=== PATIENT | female | born 1965 | race African-American/Black ===

== ENCOUNTER 2019-10-17 14:46 | Emergency (ER) | payer OTHER, SELFPAY ==
--- NOTE | ~2019-10-17 | XR_ITS ---
EXAMINATION: XR chest 2V DATE: 10/17/2019 17:10 INDICATION: Transient alteration of awareness, cough TECHNIQUE: PA and lateral views of the chest are obtained. COMPARISON: 08/20/2019 FINDINGS: The lung volumes are low. The lungs are free of acute opacities. There is no pleural effusi on or pneumothorax. Chronic elevation of the right hemidiaphragm is again noted. The cardiomediastina l silhouette is normal. There is mild thoracic spondylosis. IMPRESSION: 1. No acute cardiopulmonary abnormality. Reviewed, dictated and finalized at location A. LAYER HAND
[2019-10-17 14:47] VITALS: BP 136/72; PULSE 60; RESP 13; O2SAT 98
[2019-10-17 15:19] LABS: Glucose Point of Care 92 (65-105)
--- NOTE | 2019-10-17 15:41 | ED.GENADULT ---
HPI - General Adult General Chief complaint: Unspecified <Rafi Dutta DO - Last Filed: 10/17/19 15:51> Stated complaint: DIABETIC EMERGENCY <Rafi Dutta DO - Last Filed: 10/17/19 15:51> Time Seen by Provider: 10/17/19 14:57 <Rafi Dutta DO - Last Filed: 10/17/19 15:51> Source: RN notes reviewed <Rafi Dutta DO - Last Filed: 10/17/19 15:51> History of Present Illness HPI narrative: Patient presents emergency department from bus via EMS for hypoglycemia. Patient was found to be unresponsive on bus EMS was called and patient was found to have blood sugar 44. She is given glucose at that time blood sugar came up to 144 the patient became responsive. Patient states she takes insulin for diabetes took insulin this morning. States she did eat this morning. She denies any change in her insulin. She denies any recent illness. Denies any fevers or chills, chest pain shortness of breath abdominal pain nausea vomiting or any other symptoms at this time <Rafi Dutta DO - Last Filed: 10/17/19 15:51> Related Data Allergies/adverse reactions: Allergies Allergy/AdvReac Type Severity Reaction Status Date / Time No Known Allergies Allergy Unknown Verified 10/17/19 14:58 <Rafi Dutta DO - Last Filed: 10/17/19 15:51> Review of Systems Review of Systems: Narrative: Gen.: Denies fevers or chills Eyes: Denies eye pain or visual change ENT: Denies congestion Respiratory: Denies shortness of breath or cough CV: Denies chest pain or palpitations GI: Denies abdominal pain nausea, emesis or diarrhea Musculoskeletal: Denies back pain or muscle pain Neuro: Denies numbness, tingling, weakness or focal weakness Skin: Denies rash Endocrine: Diabetes mellitus Except as documented, all other systems reviewed and negative <Rafi Dutta DO - Last Filed: 10/17/19 15:51> PMFSH Past Medical History Medical History: Medical History History of anxiety History of diabetes mellitus History of hypertension History of sleep apnea <Rafi Dutta DO - Last Filed: 10/17/19 15:51> Surgical History Surgical History: Surgical History (Updated 08/20/19 @ 09:25 by Radha Ellison PA-C) History of D&C <Rafi Dutta DO - Last Filed: 10/17/19 15:51> Social History Social History: Social History Smoking status: Current every day smoker Gender identity (if verbalized by the patient): Female <Rafi Dutta DO - Last Filed: 10/17/19 15:51> Exam Narrative: Exam Narrative: APPEARANCE: No acute distress, nontoxic, resting in bed EYES: EOMI HEENT: Normocephalic, atraumatic, OMM RESPIRATORY: No respiratory distress Clear to auscultation bilaterally with no rhonchi wheezing or rales. CARDIOVASCULAR: Regular rate and rhythm without murmurs rubs or gallops. ABDOMINAL: Soft, nontender, nondistended, no rebound or guarding MUSCULOSKELETAl: Moves all extremities. No clubbing, cyanosis or edema. NEURO: Awake and alert x 3. Following commands, speech normal, no focal deficits SKIN:: Warm, dry. No rashes lesions or abrasions PSYCHIATRIC: Normal affect/mood, <Rafi Dutta DO - Last Filed: 10/17/19 15:51> Course Vital Signs Vital signs: Vital Signs Pulse Rate 60 10/17/19 14:47 Respiratory Rate 13 10/17/19 14:47 Blood Pressure 136/72 10/17/19 14:47 Pulse Oximetry 98 10/17/19 14:47 Pulse Rate 60 10/17/19 14:47 Respiratory Rate 13 10/17/19 14:47 Blood Pressure 136/72 10/17/19 14:47 Pulse Oximetry 98 10/17/19 14:47 <Rafi Dutta DO - Last Filed: 10/17/19 15:51> Vital Signs Pulse Rate 60 10/17/19 14:47 Respiratory Rate 13 10/17/19 14:47 Blood Pressure 136/72 10/17/19 14:47 Pulse Oximetry 98 10/17/19 14:47 Pulse Rate 60 10/17/19 14:47 Respiratory Rate 13
[2019-10-17 15:53] LABS: Basophils Absolute Auto 0.1 K/mm3 (0.0-0.1); Basophils Percent Auto 0.5 % (0.2-1.2); Eosinophils Absolute Auto 0.1 K/mm3 (0-0.3); Eosinophils Percent Auto 0.7 % (0-4.4); Hematocrit 42.2 % (37.0-47.0); Hemoglobin 13.7 g/dL (12.0-15.0); Immature Granulocyte Absolute 0.11 K/mm3 (0.00-0.031); Immature Granulocyte Percent A 0.7 % (0-0.5); Lymphocytes Absolute Auto 3.45 K/mm3 (0.9-3.2); Lymphocytes Percent Auto 22.5 % (18.3-44.2); Mean Corpuscular HGB Conc 32.5 g/dl (32-36); Mean Corpuscular Hemoglobin 27.1 pg (26-34); Mean Corpuscular Volume 83.6 fl (80-100); Mean Platelet Volume 9.1 fl (7.4-10.4); Monocytes Percent Auto 6.5 % (2.6-8.5); Neutrophils Absolute Auto 10.6 K/mm3 (1.3-6.7); Neutrophils Percent Auto 69.1 % (45.5-73.1); Platelet Count Result 461 k/mm3 (150-375); Red Blood Count 5.05 M/mm3 (4.2-5.4); Red Cell Distribution Width 15.4 % (11.5-14.5); White Blood Count 15.3 K/mm3 (4.5-10.0)
[2019-10-17 16:00] LABS: Glucose Point of Care 104 (65-105)
[2019-10-17 16:26] LABS: Alanine Aminotransferase 33 U/L (4-35); Albumin Level 4.5 g/dL (3.5-5.1); Alkaline Phosphatase 67 U/L (38-126); Aspartate Amino Transferase 36 U/L (14-36); Bilirubin,Total 0.4 mg/dL (0.2-1.3); Blood Urea Nitrogen 17 mg/dL (7-17); Calcium 9.5 mg/dL (8.4-10.2); Carbon Dioxide 29 mmol/L (22-30); Chloride 97 mmol/L (98-107); Estimated CRCL calculation 80 ml/min; Estimated Glomerular Filt Rate > 60; Glucose 84 mg/dL (65-105); Potassium 3.5 mmol/L (3.4-5.0); Sodium 137 mmol/L (137-145)
--- NOTE | 2019-10-17 16:52 | ECG_ITS ---
Measurements Intervals [place] Rate: 61 P: 140 [place]: 150 QRS: 185 QRSD: 89 T: 147 QT: 378 QTc: 381 Interpretive Statements SINUS RHYTHM ARM LEADS REVERSED ATYPICAL ECG Electronically Signed On 10-17-2019 20:05:48 PRODUCT SALES REPRESENTATIVE by Jeovany Martell D.O.
[2019-10-17 16:53] LABS: Glucose Point of Care 182 (65-105)
[2019-10-17 16:54] LABS: Add Urine Microscopic? NO; Appearance Urine Clear (Clear); Bilirubin Urine Negative (Negative); Blood Urine Negative (Negative); Color Urine Yellow (Yellow); Glucose Urine UA Negative (Negative); Ketones Urine Negative (Negative); Leukocyte Esterase Ur Negative LEU/UL (Negative); Nitrate Urine Negative (Negative); Protein Urine Negative (Negative); Specific Grav Ur 1.014 (1.001-1.035); Urobilinogen Urine Negative mg/dL (<2.0)
[2019-10-17] MEDS: KETOROLAC 30 MG/ML VIAL (*BKC) IV PUSH (17:05)
== END 2019-10-17 17:55 | disposition home or self-care (01) ==
PROVIDERS: Emergency Provider Emergency Medicine; PCP Emergency Medicine
DX: E11.649 Type 2 diabetes mellitus with hypoglycemia without coma (principal); I10 Essential (primary) hypertension; G47.30 Sleep apnea, unspecified; Z79.4 Long term (current) use of insulin
CPT/HCPCS: 36415; 71046; 80053; 81003; 82948; 85025; 93005; 96365; 96375; 99284; J0131; J1885

== ENCOUNTER 2020-03-25 13:50 | Observation (INO) | payer OTHER, SELFPAY ==
[2020-03-25] VITALS (7 sets, daily range): BP systolic 130–163; BP diastolic 59–90; PULSE 59–67; RESP 14–20; TEMP 36.7; O2SAT 95–100; BMI 43.7
--- NOTE | ~2020-03-25 | XR_ITS ---
EXAMINATION: XR chest 1V portable EXAM DATE: 03/25/2020 16:08 INDICATION: NG and alteration of awareness. TECHNIQUE: Portable AP frontal chest x-ray was obtained. Comparison is made to prior examination from 10/17/2019. FINDINGS: The lungs are clear. There are no pleural effusions. Cardiac silhouette is prominent but magnified on this AP technique. There is no pneumothorax suspected. The bones and soft tissues are unremarkable. IMPRESSION: No acute cardiopulmonary findings. Reviewed, dictated and finalized at location A.
--- NOTE | ~2020-03-25 | XR_ITS ---
EXAMINATION: XR knee RT 3V DATE: 03/26/2020 13:54 INDICATION: Right knee pain. TECHNIQUE: 3 views of right knee were obtained. COMPARISON: None. FINDINGS: Bone alignment is normal. No fracture. There is mild tricompartmental osteoarthritis. No kn ee joint effusion. IMPRESSION: 1. Mild right knee osteoarthritis. Reviewed, dictated and finalized at location A.
--- NOTE | ~2020-03-25 | MR_ITS ---
EXAMINATION: MR brain/brain stem wo/w con DATE: 03/26/2020 09:49 INDICATION: Syncope. Altered mental status. TECHNIQUE: Magnetic resonance imaging (MRI) of the brain and brainstem was performed without and with 20 mL MultiHance intravenous contrast. Sequences included sagittal and axial T1-weighted FSE, axial diffusion-weighted FS EPI, axial T2*-weighted GRE, axial T2-weighted FLAIR Propeller, and axial T2-we ighted Propeller. Postcontrast sequences included axial and coronal T1-weighted FSE. Apparent diffusi on coefficient (ADC) maps were created. COMPARISON: Head CT 03/25/2020 FINDINGS: There is an empty sella. There is no intracranial hemorrhage, acute infarction, or abnorm al intracranial mass lesion. There are scattered areas of nonspecific increased T2-weighted signal in tensity in the cerebral white matter, which is within normal limits for the patient's age. The ventri cles are normal in size. The paranasal sinuses are clear. The orbits are normal. The mastoid air cell s are normal. IMPRESSION: 1. Empty sella. Reviewed, dictated and finalized at location A. IMPRESSION: 1. Empty sella.
--- NOTE | ~2020-03-25 | XR_ITS ---
EXAMINATION: XR tibia fibula LT 2V EXAM DATE: 03/25/2020 16:14 INDICATION: Fell 2 years ago, fluid drained one year ago. Proximal left tibia/fibular pain. TECHNIQUE: Left tibia/fibula frontal and lateral projections. Correlation is made to left knee exam 04/25/2019. Comparison made to left tibia-fibula exam 01/22/2019. FINDINGS: There are no acute fractures or dislocations identified. There is no subcutaneous gas. Th e soft tissue is unremarkable. There are no radiopaque foreign bodies. Some chronic changes to the left fibular distal diaphysis. IMPRESSION: No acute osseous findings. Reviewed, dictated and finalized at location A. IMPRESSION: No acute osseous findings.
--- NOTE | ~2020-03-25 | US_ITS ---
US venous doppler [facility] DATE: 03/25/2020 16:54 INDICATION: Proximal left lower leg pain. Fall 2 years ago. Fluid was drained from the lower extremit y one year ago. TECHNIQUE: Real-time and color flow imaging and Doppler analysis of the veins of the left lower extre mity COMPARISON: None FINDINGS: The greater saphenous vein is patent. There is spontaneous and phasic flow and normal augme ntation and color flow signal and normal compression of the deep veins of the left lower extremity. IMPRESSION: No evidence of deep venous thrombosis of left leg Reviewed, dictated and finalized at Location A. Reviewed, dictated and finalized at location B.
--- NOTE | ~2020-03-25 | XR_ITS ---
EXAMINATION: XR knee LT 3V EXAM DATE: 03/26/2020 13:54 INDICATION: No known recent injury provided at this time. Pain of the left knee. TECHNIQUE: Three projections of the left knee. Comparison is made to prior examination from 04/25/2019 . FINDINGS: No evidence osteochondral defect or joint body in the left knee joint. There is mild tric ompartmental primary osteoarthritis. There are no acute fractures or dislocations identified. There is no subcutaneous gas. Small to moderate-sized joint effusion. This was present on prior study. Th ere are no radiopaque foreign bodies. IMPRESSION: 1. Small to moderate left knee joint effusion is unchanged. 2. Mild osteoarthritis. Reviewed, dictated and finalized at location A.
--- NOTE | ~2020-03-25 | CT_ITS ---
EXAMINATION: CT brain [facility] EXAM DATE: 03/25/2020 17:07 INDICATION: Altered mental status, dizziness. Slurred speech. TECHNIQUE: Spiral CT of the head was performed without contrast. Axial, coronal and sagittal images were reviewed. The dose-length product (DLP) for this examination was 605.33 mGy-cm. The exposure w as tailored according to patient size, and iterative reconstruction (ASIR) was used as additional dos e reduction technique. Comparison is made to prior examination from 08/20/2019. FINDINGS: , There is no acute intraparenchymal hemorrhage. No evidence of intraparenchymal brain mas s lesion. No evidence of acute infarction. There is no mass effect or midline shift. The ventricle s are normal in size. There are no extra-axial collections. There are no acute calvarial fractures. The orbits are unremarkable. Soft tissue is unremarkable. The visualized sinuses and mastoid air c ells are well aerated. IMPRESSION: No acute intracranial findings. Reviewed, dictated and finalized at location A.
--- NOTE | 2020-03-25 14:08 | ED.AMS ---
HPI - Altered Mental Status General Chief Complaint: Altered Mental Status Stated Complaint: low blood sugar Time Seen by Provider: 03/25/20 14:08 Source: patient and EMS Mode of arrival: EMS Limitations: no limitations History of Present Illness HPI narrative: Patient is a 55-year-old female who presented via EMS from [facility] in [place] where the patient works. 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 They applied a cool washcloth to her forehead, and EMS was called. At the time of EMS arrival, blood glucose on scene was 50, EMS established an IV and the patient was given IV dextrose. EMS denied any witnesses that stated there was seizure activity, but EMS stated patient was very confused for them throughout her ambulance ride. Patient was also given Narcan. At the time of my assessment, patient is sleepy, but arousable and conversant. She states she thinks that she may have passed out. She is reporting left leg pain. She denies chest pain or shortness of breath. No recent cough, cold or illnesses. No history of blood clot. No recent car or air travel. Patient initially presented somewhat confused, she is denying any complaints, not entirely reliable historian at this time. Not able to provide details regarding how she was feeling at the time or what made her pass out. Related Data Allergies Allergy/AdvReac Type Severity Reaction Status Date / Time No Known Allergies Allergy Unknown Verified 03/25/20 14:09 Review of Systems Review of Systems: Narrative: CONSTITUTIONAL: Denies fever CARDIOVASCULAR: Denies chest pain RESPIRATORY: Denies cough or dyspnea. GASTROINTESTINAL: Denies abdominal pain SKIN: Denies rash MUSCULOSKELETAL: Denies back pain, reports left leg pain NEUROLOGIC: Denies headache PMFSH Past Medical History Medical History History of anxiety History of diabetes mellitus History of hypertension History of sleep apnea Surgical History Surgical History History of D&C Social History Social History Smoking status: Current every day smoker Gender identity (if verbalized by the patient): Female Exam Narrative: Exam Narrative: GENERAL: Somnolent but arousable, conversant HEAD: Normocephalic, atraumatic. EYES: PERRLA and EOMI. ENT: Nares clear, no rhinorrhea or epistaxis. Mucous membranes dry. NECK: Supple. CHEST: No respiratory distress, breathing even and non labored HEART: Borderline bradycardic rate, sinus rhythm ABDOMEN: Obese, non distended, non tender EXTREMITIES: Normal range of motion. No edema. SKIN: Warm, dry, no rash. NEURO:No focal deficits. Alert and oriented x3. Finger to nose intact bilaterally, slowed but patient is able to complete this. EOMs intact without nystagmus. No facial droop/asymmetry noted bilaterally. Grimace intact. Intact sensation in face. Hearing intact bilaterally. Shoulder shrug intact. Strength 5/5 bilateral upper extremities. Strength 5/5 bilateral lower extremities.Ambulatory exam deferred. Course Vital Signs Vital signs: Vital Signs Temperature 36.7 C 03/25/20 14:00 Pulse Rate 59 L 03/25/20 14:00 Respiratory Rate 14 03/25/20 14:00 Blood Pressure 137/62 03/25/20 14:00 Pulse Oximetry 99 03/25/20 14:00 Temperature 36.7 C 03/25/20 14:00 Pulse Rate 60 03/25/20 14:45 Respiratory Rate 20 03/25/20 14:45 Blood Pressure 132/82 03/25/20 14:45 Pulse Oximetry 95 03/25/20 14:45 MDM - Altered Mental Status MDM Narrative Medical decision making narrative: Patient presented for evaluation of possible syncopal event with loss of consciousness versus possible seizure-like activity. Patient was very confused at the time of arrival, which would
--- NOTE | 2020-03-25 14:10 | PC.NURSE ---
repeat blood sugar 130mg/dl pt remains altered
[2020-03-25 14:12] LABS: Glucose Point of Care 130 (65-105)
[2020-03-25] MEDS: SODIUM CHLORIDE 0.9% IV 1,000 ML 999 ML IV CONT ×2 (14:45→19:25)
[2020-03-25 14:53] LABS: Add Urine Microscopic? NO; Appearance Urine Clear (Clear); Bilirubin Urine Negative (Negative); Blood Urine Negative (Negative); Color Urine Straw (Yellow); Glucose Urine UA Negative (Negative); Ketones Urine Negative (Negative); Leukocyte Esterase Ur Negative LEU/UL (Negative); Nitrate Urine Negative (Negative); Protein Urine Negative (Negative); Specific Grav Ur 1.006 (1.001-1.035); Urobilinogen Urine Negative mg/dL (<2.0)
--- NOTE | 2020-03-25 14:58 | PC.NURSE ---
Attempt to draw blood unsuccessful x2. [employer] Strap Sewer contacted and states will be enroute.
--- NOTE | 2020-03-25 15:00 | PC.NURSE ---
patient is a difficult draw. called phlebotomy. RN notified.
[2020-03-25 15:04] LABS: Amphetamine Screen Urine Negative (Negative); Barbiturate Screen Urine Negative (Negative); Benzodiazepines Screen Urine Negative (Negative); Cannabinoid Screen Urine Positive (Negative); Cocaine Screen Urine Negative (Negative); Methadone Screen Urine Negative (Negative); Opiate Screen Urine Negative (Negative); Phencyclidine Screen Urine Negative (Negative)
[2020-03-25 15:28] LABS: Alveolar/Arterial O2 Gradient 30.9 mmHg; Base Excess ABG -0.3 mEq/l (+/-2.0); Fractional Inspired Oxygen 21 %; HCO3 ABG 23.2 mEq/l (22.0-26.0); Oxygen Content ABG 18.8 %vol (16.0-22.0); Oxyhemoglobin 93.3 % THb (90.0-100.0); PCO2 ABG 34.7 mmHg (35.0-45.0); PO2 ABG 77.3 mmHg (80.0-100.0); PO2 FiO2 Ratio Arterial Blood 3.68 %; Total Hemoglobin 14.3 g/dL (12.0-18.0); pH ABG 7.443 (7.350-7.450)
[2020-03-25 15:30] LABS: Device ROOM AIR; Site Drawn LEFT BRACHIAL
--- NOTE | 2020-03-25 15:34 | ECG_ITS ---
Measurements Intervals [place] Rate: 57 P: 51 AR: 158 QRS: 0 QRSD: 92 T: 46 QT: 430 QTc: 422 Interpretive Statements SINUS BRADYCARDIA VOLTAGE CRITERIA FOR LVH MINIMAL Q WAVES- HIGH LATERAL LEADS BORDERLINE ECG Electronically Signed On 03-25-2020 15:38:03 CDT by Jeovany Martell D.O.
--- NOTE | 2020-03-25 15:46 | PC.NURSE ---
KAILEY Hinson, at bedside to attempt lab draw with ultrasound. Sustainment Logistics Analyst was unsuccessful with lab draw.
[2020-03-25 16:24] LABS: Basophils Absolute Auto 0.1 K/mm3 (0.0-0.1); Basophils Percent Auto 0.4 % (0.2-1.2); Eosinophils Absolute Auto 0.1 K/mm3 (0-0.3); Eosinophils Percent Auto 0.6 % (0-4.4); Hematocrit 40.3 % (37.0-47.0); Hemoglobin 13.3 g/dL (12.0-15.0); Immature Granulocyte Absolute 0.06 K/mm3 (0.00-0.031); Immature Granulocyte Percent A 0.5 % (0-0.5); Lymphocytes Absolute Auto 2.58 K/mm3 (0.9-3.2); Lymphocytes Percent Auto 19.8 % (18.3-44.2); Mean Corpuscular Hemoglobin 27.5 pg (26-34); Mean Corpuscular Volume 83.3 fl (80-100); Mean Platelet Volume 10.1 fl (7.4-10.4); Monocytes Absolute Auto 0.6 K/mm3 (0.1-0.6); Monocytes Percent Auto 4.8 % (2.6-8.5); Neutrophils Absolute Auto 9.7 K/mm3 (1.3-6.7); Neutrophils Percent Auto 73.9 % (45.5-73.1); Platelet Count Result 404 k/mm3 (150-375); Red Blood Count 4.84 M/mm3 (4.2-5.4); Red Cell Distribution Width 15.3 % (11.5-14.5); White Blood Count 13.1 K/mm3 (4.5-10.0)
[2020-03-25 16:33] LABS: Prothrombin Time 12.8 Seconds (11.1-14.7)
[2020-03-25 16:34] LABS: Partial Thromboplastin Time 31.7 SECONDS (22.3-36.8)
[2020-03-25 16:36] LABS: Ammonia < 9 umol/L (9-30)
[2020-03-25 16:37] LABS: Lactic Acid Reflex 1.3 mmol/L (0.7-2.1)
[2020-03-25 16:39] LABS: Alanine Aminotransferase 43 U/L (4-35); Albumin Level 4.2 g/dL (3.5-5.1); Alkaline Phosphatase 72 U/L (38-126); Aspartate Amino Transferase 40 U/L (14-36); Bilirubin,Total 0.4 mg/dL (0.2-1.3); Blood Urea Nitrogen 12 mg/dL (7-17); Calcium 9.3 mg/dL (8.4-10.2); Carbon Dioxide 24 mmol/L (22-30); Chloride 104 mmol/L (98-107); Creatine Kinase 294 U/L (30-135); Estimated CRCL calculation 0 ml/min; Estimated Glomerular Filt Rate > 60; Glucose 118 mg/dL (65-105); Potassium 3.7 mmol/L (3.4-5.0); Sodium 135 mmol/L (137-145)
[2020-03-25 16:48] LABS: Troponin I < 0.012 ng/mL (0.000-0.034)
[2020-03-25 16:55] LABS: D Dimer 0.27 ug/mL (<0.48)
--- NOTE | 2020-03-25 19:23 | PC.NURSE ---
Pt much more awake than on arrival. Pt is cheerful. Eating dinner tray. Report to KAILEY Echevarria, to continue care.
--- NOTE | 2020-03-25 19:27 | PC.NURSE ---
Report received at this time. pt sitting on side of stretcher eating dinner at this time. pt VS stable, RR even and unlabored. pt reports pain is improving. call light in reach-encouraged to use. will continue to monitor pt for baseline status changes.
[2020-03-25 22:27] LABS: Troponin I < 0.012 ng/mL (0.000-0.034)
[2020-03-26] VITALS (8 sets, daily range): BP systolic 123–131; BP diastolic 50–63; PULSE 65–76; RESP 20; TEMP 36.3–36.6; O2SAT 97–98
--- NOTE | 2020-03-26 | ECHO_ITS ---
Patient Info Name: Ilsa Williamson Age: 55 years : 1965 Gender: Female Ht: 62 in Wt: 239 lbs BSA: 2.24 m2 HR: 57 bpm BP: 123 / 50 mmHg Heart Rhythm: Sinus Rhythm Technical Quality: Good Exam Date: 03/26/2020 2:28 PM Exam Location: [facility] Patient Status: Outpatient Admit Date: 03/25/2020 Staff Ordering Physician: Maria Elena Yo MD Information Technology Project Manager: Giuseppe Pang, CARMENCS, RT Attending Provider: Daniel Green MD Exam Type: CA echo doppler color flow Study Info Indications R55 - Syncope and collapse Complete two-dimensional, color flow and Doppler transthoracic echocardiogram is performed. Summary 1. Left ventricular chamber dimension is normal. 2. Left ventricular systolic function is normal, estimated at 60-65%. 3. There is mildly increased left ventricular wall thickness. 4. Left ventricular septal wall motion is normal. 5. The left ventricular diastolic function is normal. 6. Left atrial chamber dimension is moderately enlarged. 7. There is mild mitral valve regurgitation. 8. There is mild tricuspid valve regurgitation. 9. Mild pulmonary hypertension, estimated pulmonary arterial systolic pressure is 38 mmHg. Left Ventricle Left ventricular chamber dimension is normal. Left ventricular systolic function is normal, estimated at 60-65%. There is mildly increased left ventricular wall thickness. Left ventricular septal wall motion is normal. The left ventricular diastolic function is normal. Right Ventricle Right ventricular chamber dimension is normal. Right ventricular systolic function is normal. Left Atria Left atrial chamber dimension is moderately enlarged. Right Atria Right atrial chamber dimension is normal. Atrial Septum Intact interatrial septum visualized by color flow imaging. Aortic Valve The aortic valve is not well visualized. There is no aortic valve stenosis. There is trace aortic valve regurgitation. Pulmonic Valve The pulmonic valve is normal. There is no pulmonic valve stenosis. There is trace pulmonic regurgitation. Mitral Valve The mitral valve has thickened leaflets. There is no mitral valve stenosis. There is mild mitral valve regurgitation. Tricuspid Valve The tricuspid valve leaflets are normal. There is no significant tricuspid valve stenosis. There is mild tricuspid valve regurgitation. Mild pulmonary hypertension, estimated pulmonary arterial systolic pressure is 38 mmHg. Pericardium/Pleural The pericardium appears normal. There is no pericardial effusion. Inferior Vena Cava Normal inferior vena cava with >50% collapse upon inspiration consistent with normal right atrial pressure, 5 mmHg. Aorta The aortic root size at the sinus of Valsalva is normal. The prox ascending aorta size is normal. Left Ventricular Outflow Tract Name Value Normal LVOT 2D LVOT Diameter 1.9 cm LVOT Doppler LVOT Peak Gradient 4 mmHg LVOT Mean Gradient 2 mmHg LVOT VTI 22 cm LVOT VTI/AV VTI Ratio 0.8
--- NOTE | 2020-03-26 02:15 | ADMGEN ---
This patient, Ilsa Williamson, was admitted to 3 [facility] Surg Room 317-01. Patient/family oriented to hospital policies and general routines including ID bracelet, bed and alarms, visiting hours, pain management, procedures, bathroom and other care routines, personal items, smoking policy, room service/diet, and visiting hours. Valuables list has been completed. Information on how to activate the Rapid Response Team has been discussed. Patient/Family are encouraged to report perceived risks to care and to ask questions if they do not understand what they are told or what they should do.
--- NOTE | 2020-03-26 07:30 | NEURO_ITS ---
TEST: ELECTROENCEPHALOGRAM DIAGNOSIS: POSSIBLE SEIZURE PATIENT NUMBER: [id number] EEG NUMBER: [id number] RECORDING DATE: 03/26/20 CLINICAL HISTORY: Patient reports she was at work doing laundry and lost consciousness. No warning sign before. Also states she lost consciousness about a month ago also. CONDITION OF RECORDING: Awake, drowsy and sleep EEG DESCRIPTION: Basic resting occipital frequency consists of poorly organized low voltage 9-11hz alpha mixed low voltage 15-21hz beta. During drowsiness low voltage beta activity is seen diffusely mixed with waxing and waning posterior alpha rhythms. Bilateral symmetrical sleep activity is seen during sleep. Hyperventilation and photic stimulation were not done. Nonparoxysmal. Nonfocal. Nonlateralizing. IMPRESSION: No significant abnormalities noted. MTDD
[2020-03-26 08:21] LABS: Glucose Point of Care 234 (65-105)
[2020-03-26 08:21] LABS: Glucose Point of Care 248 (65-105)
[2020-03-26 09:48] LABS: Hepatitis B Surface Antigen Negative (Negative)
[2020-03-26 09:54] LABS: HAV RESULT Negative (Negative); Hepatitis B Core IgM Result Negative (Negative)
[2020-03-26 10:06] LABS: Hepatitis C Virus Antibody Negative (Negative)
[2020-03-26] MEDS: ACETAMINOPHEN 325 MG TABLET 650 MG PO ×2 (12:14→20:41)
[2020-03-26 12:45] LABS: Glucose Point of Care 263 (65-105)
--- NOTE | 2020-03-26 13:07 | PM.IMHP ---
H&P: HPI History of Present Illness Chief complaint: Syncope Narrative: patient is a 55-year-old female with history of diabetes hypertension and chronic bilateral knee pain while at work yesterday patient states she took her insulin ate her meal and soon after that patient was feeling uncomfortable she was seen by her accounting supervisor and was asked to sit down on the chest with fan on, which did make her comfortable however soon after patient slumped over in the chair and was not very responsive, EMS was called upon arrival patient blood sugar was 53, IV line was placed patient was given dextrose, which did improve her blood sugar, on arrival to ER patient was still quite confused and was not able to provide detail review of symptom or history, to further evaluate her confusion patient had a CT scan of the head which is essentially normal for any acute injury similarly had MRI of the brain which does not show any acute lesion howeverthe sella turcica is empty patient will be seen by neurologist and further recommendation to follow, though patient denies taking any more insulin than prescribed however patient is taking large amount of insulin to control her diabetes and I suspect most likely patient may have taken more insulin or may not have eaten properly leading to hypoglycemic and confusion. patient also has history of chronic bilateral knee pain for patient is seen by orthopedic surgeon at [facility] and recently had hydrocortisone injection which did help but her knee pain is persisting will have orthopedic evaluate the patient Review of Systems Review of Systems: All systems reviewed & are unremarkable except as noted in HPI and below PMFSH Past Medical History Medical History History of anxiety History of diabetes mellitus History of hypertension History of sleep apnea Surgical History Surgical History History of D&C Family History Family History (Updated 03/26/20 @ 02:33 by Dilcia Natarajan RN) Mother Diabetes mellitus Other Acute myocardial infarction Hypertension Social History Social History Years smoked: 20 Smoking status: Current every day smoker Tobacco type: cigarettes Alcohol intake: current Drinks per week: 2 Substance use: former Gender identity (if verbalized by the patient): Female Spiritual care concerns: No Meds Home Medications and Allergies Home Medications Medication Instructions Recorded Confirmed Type amlodipine 10 mg PO DAILY 03/26/20 03/26/20 History atorvastatin [Lipitor] 10 mg PO DAILY 03/26/20 03/26/20 History bupropion HCl [Wellbutrin SR] 200 mg PO BID 03/26/20 03/26/20 History clonazepam [Klonopin] 1 mg PO HS 03/26/20 03/26/20 History escitalopram oxalate [Lexapro] 20 mg PO DAILY 03/26/20 03/26/20 History hydrochlorothiazide 12.5 mg PO DAILY 03/26/20 03/26/20 History insulin glargine [Lantus U-100 42 unit SUBCUT DAILY 03/26/20 03/26/20 History Insulin] insulin lispro See Rx Instructions .ROUTE .COMPLEX 03/26/20 03/26/20 History insulin lispro [Humalog U-100 1 sliding scale dose SUBCUT 03/26/20 03/26/20 History Insulin] USEASDIRECTD liraglutide [Victoza 2-Kayden] 1.8 mg SUBCUT DAILY 03/26/20 03/26/20 History losartan 100 mg PO DAILY 03/26/20 03/26/20 History omeprazole 40 mg PO DAILY 03/26/20 03/26/20 History propranolol 40 mg PO DAILY 03/26/20 03/26/20 History Allergies Allergy/AdvReac Type Severity Reaction Status Date / Time No Known Allergies Allergy Unknown Verified 03/25/20 14:09 Vital Signs Vital Signs - 24 hr 03/25/20 14:00 03/25/20 14:45 03/25/20 17:19 Temperature 98.1 F Pulse Rate 59 L 60 66 Respiratory Rate 14 20 18 Blood Pressure 137/62 132/82 132/90 Pulse Oximetry 99 95 100 03/25/20 17:45 03/25/20 19:28 03/25/20 21:28 Temperature 98.0 F Pulse Rate 61 61 67 Respi
[2020-03-26] MEDS: INSULIN ASPART (*BKC) 100 UNITS/ML SUB-Q (17:56)
[2020-03-26] MEDS: buPROPion HCL SR (12HR) 100 MG TABCR 200 MG PO (17:56)
[2020-03-26] MEDS: PANTOPRAZOLE 40 MG TABLET PO (17:56)
[2020-03-26 18:51] LABS: Glucose Point of Care 267 (65-105)
[2020-03-26] MEDS: clonazePAM 0.5 MG TABLET 1 MG PO (20:38)
--- NOTE | 2020-03-26 21:19 | CONS_ITS ---
DATE OF CONSULTATION: HISTORY OF PRESENT ILLNESS: This 55 years old right-handed female has been admitted to the hospital with the complaint of syncopal episode in addition to ongoing history of 1. Diabetes mellitus. 2. Hypertension. 3. Chronic bilateral knee pain. 4. Sleep apnea. As per the information available, while at work, the patient took her insulin at her mealtime and soon after that she was feeling uncomfortable. She was seen by her ward supervisor and asked to sit down on the chest with fan on, which did make her comfortable; however, soon after she slumped over in the chair and was not very responsive. EMS was called. Upon arrival, the patient's blood sugar was only 53. IV line was placed. The patient was given dextrose, which made her somewhat better. On arrival in the emergency room, still she was confused and was not able to provide details. CT scan of the head was done in the emergency room, which was negative. However, the sella turcica was empty, which was documented by the physician radiologist. She denied taking any more than prescribed insulin. She has been not eating properly. PAST MEDICAL HISTORY: As mentioned before, she has ongoing history of anxiety and sleep apnea in addition to hypertension as well. PAST SURGICAL HISTORY: In the past, she has only undergone D and C. SOCIAL HISTORY: She is a current every day smoker, 2 drinks per day of alcohol and has been taking multiple medications as outlined. PHYSICAL EXAMINATION: VITAL SIGNS: Evaluation revealed her to be afebrile, normotensive with pulse ox 99%. GENERAL: Examination revealed her to be awake, alert, cooperative, in no obvious acute distress. NEUROLOGICAL: Speech not dysphasic, not dysarthric, not dysphonic. Pupils round, regular. Lay of vision full. Extraocular movements full. Face symmetrical. Tongue midline. Motor examination revealed her to have no drift of 1 side or other side. Reflexes symmetrical. Plantars downgoing. HEART: Regular. LUNGS: Clear. ABDOMEN: Soft. LABORATORY DATA: Initial CBC revealed WBC 13.1, hemoglobin 13.3, platelet count 404. Basic metabolic panel normal. Troponin less than 0.012. Hepatic enzymes with AST 40, ALT 43, alkaline phos 72, and albumin 4.2. UA negative. IMAGING DATA: The brain MRI documented the empty sella, but no space-occupying lesion. Doppler study, an echocardiogram revealed left ventricular chamber dimension normal so as the ventricular dimension. Left atrium was moderately enlarged with mild mitral wall regurgitation and mild pulmonary hypertension. Knee x-rays with small to moderate left knee joint effusion, which was unchanged compared to the previous studies. IMPRESSION: Hypoglycemic episode with incidental finding of empty sella on the MRI. The patient will be followed as an outpatient subsequently. If necessary, we will consider further evaluation for the empty sella syndrome. There are the hormonal studies and possibly the spinal tap to rule out the possibility of the intracranial hypertension. At this stage, we can obtain the routine endocrinological studies. CRISTY COOL M.D. RUBY DEVELOPER RUBY DEVELOPER D I MT: Raghav
[2020-03-26 21:55] LABS: Glucose Point of Care 252 (65-105)
[2020-03-27] VITALS (7 sets, daily range): BP systolic 120–130; BP diastolic 72; PULSE 57–80; RESP 20; TEMP 36.1–36.6; O2SAT 98–100
[2020-03-27 07:04] LABS: Alanine Aminotransferase 34 U/L (4-35); Albumin Level 3.7 g/dL (3.5-5.1); Alkaline Phosphatase 63 U/L (38-126); Anion Gap 10.6 mmol/L (7-16); Aspartate Amino Transferase 50 U/L (14-36); Bilirubin,Total 0.3 mg/dL (0.2-1.3); Blood Urea Nitrogen 11 mg/dL (7-17); Calcium 8.9 mg/dL (8.4-10.2); Carbon Dioxide 25 mmol/L (22-30); Chloride 102 mmol/L (98-107); Estimated CRCL calculation 89 ml/min; Estimated Glomerular Filt Rate > 60; Glucose 199 mg/dL (65-105); Potassium 3.6 mmol/L (3.4-5.0); Sodium 134 mmol/L (137-145)
[2020-03-27 09:00] LABS: Glucose Point of Care 238 (65-105)
[2020-03-27] MEDS: PANTOPRAZOLE 40 MG TABLET PO (09:35)
[2020-03-27] MEDS: buPROPion HCL SR (12HR) 100 MG TABCR 200 MG PO (09:35)
[2020-03-27] MEDS: hydroCHLOROthiazide 12.5 MG CAPSULE PO (09:35)
[2020-03-27] MEDS: ACETAMINOPHEN 325 MG TABLET 650 MG PO ×2 (09:35→14:16)
[2020-03-27] MEDS: ATORVASTATIN 10 MG TABLET PO (09:35)
[2020-03-27] MEDS: ESCITALOPRAM OXALATE 10 MG TABLET 20 MG PO (09:35)
[2020-03-27] MEDS: LOSARTAN POTASSIUM 100 MG TABLET PO (09:35)
[2020-03-27] MEDS: amLODIPine BESYLATE 5 MG TABLET 10 MG PO (09:37)
[2020-03-27] MEDS: INSULIN ASPART (*BKC) 100 UNITS/ML SUB-Q ×2 (09:43→14:17)
[2020-03-27] MEDS: INSULIN GLARGINE (*BKC) 100 UNITS/ML 42 UNITS SUB-Q (09:44)
[2020-03-27] MEDS: ONDANSETRON INJ 4 MG/2 ML VIAL IV PUSH (09:48)
[2020-03-27 11:42] LABS: Glucose Point of Care 298 (65-105)
--- NOTE | 2020-03-27 15:18 | PM.DS ---
DS: Admitting Diagnosis Admitting Diagnosis Admitting Diagnosis: Syncope and collapse DS: Discharge Diagnosis Discharge Diagnosis (1) Syncope and collapse: Code(s): R55 - Syncope and collapse Status: Acute Assessment and Plan: patient is a 55-year-old female with history of diabetes hypertension and chronic bilateral knee pain while at work yesterday patient states she took her insulin ate her meal and soon after that patient was feeling uncomfortable she was seen by her packing and wrapping supervisor and was asked to sit down on the chest with fan on, which did make her comfortable however soon after patient slumped over in the chair and was not very responsive, EMS was called upon arrival patient blood sugar was 53, IV line was placed patient was given dextrose, which did improve her blood sugar, on arrival to ER patient was still quite confused and was not able to provide detail review of symptom or history, to further evaluate her confusion patient had a CT scan of the head which is essentially normal for any acute injury similarly had MRI of the brain which does not show any acute lesion howeverthe sella turcica is empty patient will be seen by neurologist and further recommendation to follow, though patient denies taking any more insulin than prescribed however patient is taking large amount of insulin to control her diabetes and I suspect most likely patient may have taken more insulin or may not have eaten properly leading to hypoglycemic and confusion. patient also has history of chronic bilateral knee pain for patient is seen by orthopedic surgeon at [facility] and recently had hydrocortisone injection which did help but her knee pain is persisting will have orthopedic evaluate the patient (2) Chronic knee pain: Code(s): M25.569 - Pain in unspecified knee; G89.29 - Other chronic pain Status: Acute Assessment and Plan: will have orthopedic consult the patient (3) History of hypertension: Code(s): Z86.79 - Personal history of other diseases of the circulatory system Status: Acute Assessment and Plan: continue home regimen (4) History of diabetes mellitus: Code(s): Z86.39 - Personal history of other endocrine, nutritional and metabolic disease Status: Acute Assessment and Plan: patient is taking large amount of insulin most likely patient had taken more insulin or may not have ate properly with her insulin and resulted in hypoglycemia confusion will have special education paraeducator consult the patient. DS: Summary Hospital Course Reason for hospitalization: patient is a 55-year-old female with history of diabetes hypertension and chronic bilateral knee pain while at work yesterday patient states she took her insulin ate her meal and soon after that patient was feeling uncomfortable she was seen by her packing and wrapping supervisor and was asked to sit down on the chest with fan on, which did make her comfortable however soon after patient slumped over in the chair and was not very responsive, EMS was called upon arrival patient blood sugar was 53, IV line was placed patient was given dextrose, which did improve her blood sugar, on arrival to ER patient was still quite confused and was not able to provide detail review of symptom or history, to further evaluate her confusion patient had a CT scan of the head which is essentially normal for any acute injury similarly had MRI of the brain which does not show any acute lesion howeverthe sella turcica is empty patient will be seen by neurologist and further recommendation to follow, though patient denies taking any more insulin than prescribed however patient is taking large amount of insulin to control her diabetes and I suspect most likely patient may have taken more insulin or may not have eaten properly leading to hypoglycemic and confusion. patient also has history of chronic bilateral knee pain for patient is seen by orthopedic surgeon at [facility] and recently had hydrocor
== END 2020-03-27 17:00 | disposition home or self-care (01) ==
LOC: ANHED 18:46 → ANH3MEDSUR 03-26 06:51
PROVIDERS: Admitting Provider Internal Medicine; Emergency Provider Emergency Medicine; PCP Emergency Medicine; Visit Provider Family Medicine
DX: R55 Syncope and collapse (principal); E11.649 Type 2 diabetes mellitus with hypoglycemia without coma; F17.210 Nicotine dependence, cigarettes, uncomplicated; G89.29 Other chronic pain; G47.30 Sleep apnea, unspecified; I10 Essential (primary) hypertension; M25.562 Pain in left knee; M25.561 Pain in right knee; Z79.4 Long term (current) use of insulin; Z79.899 Other long term (current) drug therapy
CPT/HCPCS: 36415; 36600; 70450; 70553; 71045; 73562; 73590; 80053; 80074; 80307; 81003; 82140; 82550; 82805; 82948; 83605; 84443; 84484; 85025; 85380; 85610; 85730; 87040; 93005; 93306; 93971; 95816; 96360; 96361; 96374; 99285; A9270; A9577; G0378; G0379; J1815; J2405; J7030

== ENCOUNTER 2021-01-31 16:16 | Observation (INO) | payer OTHER, SELFPAY ==
[2021-01-31] VITALS (10 sets, daily range): BP systolic 107–132; BP diastolic 45–84; PULSE 60–87; RESP 16–22; TEMP 36.4–36.6; O2SAT 96–100; BMI 42.5
--- NOTE | ~2021-01-31 | XR_ITS ---
EXAMINATION: XR chest 2V 01/31/2021 16:37 INDICATION: Chest pain and nausea PROCEDURE: AP and lateral views of the chest COMPARISON: Comparison to multiple prior studies sequentially, with oldest reviewed study dated 03/2018. FINDINGS: The lungs are clear. The cardiomediastinal silhouette is within normal limits. There are no pleural effusions. There is no pneumothorax suspected. 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 IMPRESSION: 1: NO ACUTE CARDIOPULMONARY DISEASE. Reviewed, dictated and finalized at location A.
--- NOTE | ~2021-01-31 | CT_ITS ---
EXAMINATION: CT abdomen pelvis wo con DATE: 02/01/2021 14:40 INDICATION: Epigastric pain TECHNIQUE: Computed tomography (CT) of the abdomen and pelvis was performed without intravenous contr ast. The dose-length product was 1442.74 mGy-cm. Automated exposure control and iterative reconstruct ion technique were employed. COMPARISON: 07/11/2014 FINDINGS: Lung bases are unremarkable. Heart size normal. Elevated right diaphragm. No significant va scular abnormality. No lymphadenopathy. The liver, spleen, pancreas, adrenal glands and kidneys are unremarkable. Gallbladder is present. Non obstructive bowel gas pattern. Small fat-containing umbilical hernia. Colonic diverticulosis without evidence for diverticulitis. Mild lumbar spondylosis. No acute osseous abnormality. IMPRESSION: 1. No acute abdominal abnormality. Reviewed, dictated and finalized at location A.
--- NOTE | 2021-01-31 16:22 | ECG_ITS ---
Measurements Intervals [place] Rate: 71 P: 57 NE: 133 QRS: 1 QRSD: 89 T: 58 QT: 437 QTc: 476 Interpretive Statements SINUS RHYTHM NONSPECIFIC ST & T-WAVE ABNORMALITY- HIGH LATERAL LEADS BASELINE ARTIFACT- I, II, III, AVR, AVF, V3-V6 BORDERLINE ECG Electronically Signed On 01-31-2021 18:26:20 CDT by Jeovany Martell D.O.
--- NOTE | 2021-01-31 16:28 | ED.CHESTPAIN ---
HPI - Chest Pain General Chief Complaint: Chest Pain Stated Complaint: ANXIETY/CP Time Seen by Provider: 01/31/21 16:23 Source: patient Mode of arrival: ambulatory Limitations: no limitations History of Present Illness HPI narrative: Patient is a 55-year-old female complaining of anxiety attack , described as palpitations, nausea, vomiting, chest tightness and shortness of breath that started prior to arrival. Patient states that this is her typical anxiety attack. Patient states that she was sitting in the bleachers at a graduation ceremony when she suddenly became hot and started to experience the above symptoms. Patient denies any abdominal pain fever or chills. Related Data Home Medications Medication Instructions Recorded Confirmed Humalog U-100 Insulin 1 sliding scale dose SUBCUT 03/26/20 03/26/20 USEASDIRECTD Lantus U-100 Insulin 42 unit SUBCUT DAILY 03/26/20 03/26/20 Victoza 2-Kayden 1.8 mg SUBCUT DAILY 03/26/20 03/26/20 escitalopram oxalate [Lexapro] 20 mg PO DAILY 03/26/20 03/26/20 hydrochlorothiazide 12.5 mg PO DAILY 03/26/20 03/26/20 divalproex PO 01/31/21 linaclotide [Linzess] mcg 01/31/21 metformin mg PO 01/31/21 omeprazole 01/31/21 propranolol 01/31/21 spironolactone 01/31/21 Allergies Allergy/AdvReac Type Severity Reaction Status Date / Time No Known Allergies Allergy Unknown Verified 01/31/21 16:23 Review of Systems Review of Systems: All systems reviewed & are unremarkable except as noted in HPI and below Constitutional: Constitutional: Denies body ache(s), Denies chills, Denies excessive sweating, Denies fatigue, Denies fever(s), Denies headache(s), Denies lethargy, Denies malaise, Denies weakness and Denies weight loss Eyes: Eyes: Denies blurry vision, Denies change in vision and Denies loss of vision ENT: Denies dizziness, Denies ear discharge, Denies headache(s), Denies lip swelling, Denies epistaxis, Denies nasal congestion, Denies neck pain, Denies throat swelling and Denies tongue swelling Cardiovascular: Cardiovascular: Denies diaphoresis, Denies rapid heart rate, Denies edema, Denies irregular heart rhythm, Denies lightheadedness, Reports dyspnea and Denies dyspnea on exertion Respiratory: Respiratory: Denies chest congestion, Denies cough, Denies hemoptysis, Denies dyspnea and Denies dyspnea on exertion Gastrointestinal: Gastrointestinal: Denies abdominal pain, Denies melena, Denies hematochezia, Denies diarrhea, Denies nausea, Denies vomiting and Denies hematemesis Musculoskeletal: Musculoskeletal: Denies abnormal gait, Denies deformity, Denies joint swelling, Denies limited range of motion, Denies neck pain and Denies numbness Neurologic: Denies Abnormal speech present, Denies abnormal gait, Denies confusion, Denies dizziness, Denies headache(s), Denies focal weakness, Denies loss of vision, Denies numbness, Denies Other visual disturbances, Denies Sensory deficit (Neuro) and Denies weakness Psychiatric: Psychiatric: Denies confusion, Denies depression, Denies auditory hallucinations, Denies homicidal ideation and Denies suicidal ideation Endocrine: Endocrine: Denies cold intolerance, Denies excessive sweating, Denies fatigue, Denies heat intolerance and Denies palpitations Hematologic/Lymphatic: Hematologic/Lymphatic: Denies easy bleeding and Denies easy bruising Allergic/Immunologic: Allergic/Immunologic: Denies lip swelling, Denies throat swelling and Denies tongue swelling PMFSH Past Medical History Medical History (Updated 01/31/21 @ 18:44 by Rafi Farooq MD) History of anxiety History of diabetes mellitus History of hypertension History of sleep apnea Surgical History Surgical History History of D&C Family History Family History Mother Diabetes mellitus Other Acute myocardial infarction Hypertension Social History Social History (Reviewed
[2021-01-31] MEDS: LORazepam INJ (*CRX) 2 MG/ML VIAL 1 MG IV PUSH (16:45)
[2021-01-31 17:30] LABS: Anion Gap 13 mmol/L (8-16); Blood Urea Nitrogen 13 mg/dL (7-17); Calcium 10.7 mg/dL (8.4-10.2); Carbon Dioxide 29 mmol/L (22-30); Chloride 98 mmol/L (98-107); Estimated CRCL calculation 65 ml/min; Estimated Glomerular Filt Rate > 60; Glucose 109 mg/dL (65-105); Potassium 3.8 mmol/L (3.4-5.0); Sodium 140 mmol/L (137-145)
[2021-01-31 17:42] LABS: Troponin I < 0.012 ng/mL (0.000-0.034)
[2021-01-31 18:05] LABS: Basophils Absolute Auto 0.1 K/mm3 (0.0-0.1); Basophils Percent Auto 0.4 % (0.2-1.2); Eosinophils Absolute Auto 0.1 K/mm3 (0-0.3); Eosinophils Percent Auto 0.9 % (0-4.4); Hematocrit 38.6 % (37.0-47.0); Immature Granulocyte Absolute 0.06 K/mm3 (0.00-0.031); Immature Granulocyte Percent A 0.4 % (0-0.5); Lymphocytes Absolute Auto 3.69 K/mm3 (0.9-3.2); Lymphocytes Percent Auto 27.4 % (18.3-44.2); Mean Corpuscular HGB Conc 33.7 g/dl (32-36); Mean Corpuscular Hemoglobin 28.5 pg (26-34); Mean Corpuscular Volume 84.6 fl (80-100); Mean Platelet Volume 9.8 fl (7.4-10.4); Monocytes Absolute Auto 0.9 K/mm3 (0.1-0.6); Monocytes Percent Auto 6.7 % (2.6-8.5); Neutrophils Absolute Auto 8.7 K/mm3 (1.3-6.7); Neutrophils Percent Auto 64.2 % (45.5-73.1); Platelet Count Result 433 k/mm3 (150-375); Red Blood Count 4.56 M/mm3 (4.2-5.4); Red Cell Distribution Width 15.6 % (11.5-14.5); White Blood Count 13.5 K/mm3 (4.5-10.0)
[2021-01-31 18:18] LABS: Prothrombin Time 13.4 Seconds (11.1-14.7)
[2021-01-31 18:20] LABS: Partial Thromboplastin Time 31.9 SECONDS (22.3-36.8)
[2021-01-31 18:31] LABS: D Dimer 0.32 ug/mL (<0.48)
--- NOTE | 2021-01-31 19:56 | ADMGEN ---
This patient, Ilsa Williamson, was admitted to IMU Room 214-01. Patient/family oriented to hospital policies and general routines including ID bracelet, bed and alarms, visiting hours, pain management, procedures, bathroom and other care routines, personal items, smoking policy, room service/diet, and visiting hours. Information on how to activate the Rapid Response Team has been discussed. Patient/Family are encouraged to report perceived risks to care and to ask questions if they do not understand what they are told or what they should do.
[2021-01-31 20:14] LABS: Glucose Point of Care 138 mg/dl (65-105)
--- NOTE | 2021-01-31 20:18 | ECG_ITS ---
Measurements Intervals [place] Rate: 66 P: 123 AR: 141 QRS: 173 QRSD: 90 T: 121 QT: 392 QTc: 411 Interpretive Statements SINUS RHYTHM ARM LEADS REVERSED BORDERLINE T WAVE ABNORMALITY- ANTERIOR LEADS BASELINE ARTIFACT- I, II, III, AVR, AVL, AVF, V1 BORDERLINE ECG Electronically Signed On 02-01-2021 6:59:08 CDT by Jeovany Martell D.O.
--- NOTE | 2021-01-31 20:20 | PM.IMHP ---
H&P: HPI History of Present Illness Date/Time: 01/31/21 20:20 Chief Complaint: Anxiety attack Narrative: 55-year-old with a past medical history of hypertension, insulin-dependent diabetes mellitus and anxiety who presented to the ER with what she describes as an anxiety attack. The patient reports she was at her granddaughter's high school graduation when she suddenly felt nauseated and felt emesis coming upper throat. She immediately began feeling lightheaded and diaphoretic. She only made it a few steps from her seat when she became overwhelmingly weak and had to lay down. She then began to hyperventilate and had some numb and tingling sensation around her mouth and in her hands and feet. She reports her arms and legs were so heavy that she could not lift them. She did have some chest pain that she describes as under the left breast and radiating up through her chest. The pain was burning in nature and severe in intensity initially. She is still having 5/10 chest pain that feels like bad reflux. She was recently hospitalized at [facility] for GI symptoms and had a colonoscopy. She is scheduled to have an outpatient gastric emptying study soon. She had a thyroid biopsy but she has not yet received the results. She did have some shortness of breath with initial onset of symptoms but this has since resolved. She received 2 doses of Ativan in the ER with improvement in her symptoms. She denies any paroxysmal long nocturnal dyspnea, orthopnea or dyspnea on exertion. She has not had any cough or congestion. She has not had any fevers or chills. The patient does have chronic constipation. She reports that she will frequently have left lower abdominal pain. The pain usually gets better after she has a bowel movement. She intermittently takes MiraLax for constipation. She is also on Linzess. She reports frequent migraines. She currently has a ?really bad headache?. She reports that her headache is in the left parietal. She is not having any visual changes or aura. She reports that she used to take [place] for her headaches but has been trying to ?tough it out just taking Tylenol. She rib also reports a history of cirrhosis due to OZUNA. Review of Systems Review of Systems: Narrative: 12 systems were reviewed with pertinent positives and negatives per HPI. Except as documented in the HPI, all other systems were reviewed and are negative. 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 Migraines Multinodular goiter Obesity, morbid, BMI 40.0-49.9 Obstructive sleep apnea Surgical History Surgical History (Updated 01/31/21 @ 20:38 by Anna Mckeon DO) History of carpal tunnel release right History of D&C (06/2019) Family History Family History Mother , at age 66 Diabetes mellitus CHF (congestive heart failure) Hypertension Father , at age 79 Lung cancer Hypertension Sibling Diabetes mellitus Acute myocardial infarction, Onset Age: 52 As a complication of diabetes Hypertension Social History Social History (Updated 01/31/21 @ 22:08 by Anna Mckeon DO) Social History: She is legally and lives in [facility]. She has 5 children 3 daughters and 2 sons. She could started smoking at age 33 in his smoked less than a quarter pack of cigarettes per day since that time. She drinks 1 alcoholic beverage a week. She denies any illicit substance use. 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 Primary care provider: Dr. Malik ([facility]) Mathew Code status: Full code Smoking packs per day: 0.25
[2021-01-31 20:49] LABS: Troponin I < 0.012 ng/mL (0.000-0.034)
--- NOTE | 2021-01-31 21:00 | PC.NURSE ---
Hopen notified of moderate risk from the [place] Suicide Risk questionaire. Hopen ok to keep in IMU.
[2021-01-31] MEDS: BELLADONNA ALK/PHENOB ELIX 10 ML, MAG HYDROX/ALUMINUM HYD/SIMETH 30 ML, LIDOCAINE HCL 2... PO (21:35)
[2021-01-31] MEDS: SODIUM CHLORIDE 0.9% IV 1,000 ML 100 ML IV CONT (21:38)
[2021-01-31] MEDS: ACETAMINOPHEN 325 MG TABLET 650 MG PO (21:38)
[2021-01-31] MEDS: INSULIN GLARGINE (*BKC) 100 UNITS/ML 25 UNITS SUB-Q (23:20)
[2021-01-31] MEDS: clonazePAM (*CRX) 0.5 MG TABLET PO (23:21)
[2021-01-31] MEDS: traZODone HCL 50 MG TABLET 100 MG PO (23:21)
[2021-01-31] MEDS: buPROPion HCL SR (12HR) 100 MG TABCR 200 MG PO (23:21)
[2021-01-31] MEDS: DIVALPROEX SODIUM DR 250 MG TABEC PO (23:21)
[2021-02-01] VITALS (13 sets, daily range): BP systolic 105–129; BP diastolic 44–65; PULSE 62–81; RESP 16–20; TEMP 36.4–36.8; O2SAT 96–99
[2021-02-01 00:08] LABS: Troponin I < 0.012 ng/mL (0.000-0.034)
[2021-02-01 04:37] LABS: Alanine Aminotransferase 14 U/L (4-35); Albumin Level 3.8 g/dL (3.5-5.1); Alkaline Phosphatase 46 U/L (38-126); Anion Gap 6 mmol/L (8-16); Aspartate Amino Transferase 19 U/L (14-36); Bilirubin,Total 0.2 mg/dL (0.2-1.3); Blood Urea Nitrogen 13 mg/dL (7-17); Carbon Dioxide 33 mmol/L (22-30); Chloride 97 mmol/L (98-107); Estimated CRCL calculation 65 ml/min; Estimated Glomerular Filt Rate > 60; Glucose 188 mg/dL (65-105); Potassium 3.6 mmol/L (3.4-5.0); Sodium 136 mmol/L (137-145)
[2021-02-01 07:53] LABS: Glucose Point of Care 175 mg/dl (65-105)
[2021-02-01 09:22] LABS: Vitamin D 25 Hydroxy 41.1 ng/mL
[2021-02-01] MEDS: PANTOPRAZOLE SODIUM IV 40 MG VIAL IV PUSH (09:39)
[2021-02-01] MEDS: hydroCHLOROthiazide 12.5 MG CAPSULE PO (09:40)
[2021-02-01] MEDS: buPROPion HCL SR (12HR) 100 MG TABCR 200 MG PO ×2 (09:40→16:47)
[2021-02-01] MEDS: LOSARTAN POTASSIUM 100 MG TABLET PO (09:40)
[2021-02-01] MEDS: amLODIPine BESYLATE 5 MG TABLET 10 MG PO (09:41)
[2021-02-01] MEDS: PROPRANOLOL HCL 40 MG TABLET PO (09:41)
[2021-02-01] MEDS: polyethylene glycoL 3350 17 GM POWD.PACK PO (09:41)
[2021-02-01] MEDS: ESCITALOPRAM OXALATE 10 MG TABLET PO (09:41)
[2021-02-01] MEDS: ATORVASTATIN 10 MG TABLET PO (09:41)
[2021-02-01] MEDS: INSULIN ASPART (*BKC) 100 UNITS/ML 30 UNITS SUB-Q ×2 (09:44→11:48)
[2021-02-01 09:49] LABS: CRP 0.6 mg/dL (<1.0); Lipase 123 U/L (23-300)
[2021-02-01 09:54] LABS: NT Pro B Type Natriuretic Pept 31 pg/mL (5-100)
[2021-02-01 11:40] LABS: Glucose Point of Care 173 mg/dl (65-105)
--- NOTE | 2021-02-01 15:06 | PM.DS ---
DS: Admitting Diagnosis Admitting Diagnosis Admitting Diagnosis: anxiety attack DS: Discharge Diagnosis Discharge Diagnosis (1) Atypical chest pain: Code(s): R07.89 - Other chest pain Status: Acute (2) Anxiety: Code(s): F41.9 - Anxiety disorder, unspecified Status: Acute (3) GERD (gastroesophageal reflux disease): Qualifiers: Esophagitis presence: esophagitis presence not specified Qualified Code(s): K21.9 - Gastro-esophageal reflux disease without esophagitis Code(s): K21.9 - Gastro-esophageal reflux disease without esophagitis Status: Acute (4) History of diabetes mellitus: Code(s): Z86.39 - Personal history of other endocrine, nutritional and metabolic disease Status: Acute (5) Depression: Qualifiers: Active/Remission status: currently active Depression Type: major depressive disorder Major depression episode severity: mild Major depression recurrence: recurrent Qualified Code(s): F33.0 - Major depressive disorder, recurrent, mild Code(s): F32.9 - Major depressive disorder, single episode, unspecified Status: Acute (6) Elevated parathyroid hormone: Code(s): E34.9 - Endocrine disorder, unspecified Status: Acute (7) History of suicidal ideation: Code(s): Z86.59 - Personal history of other mental and behavioral disorders Status: Acute DS: Summary Hospital Course Hospital Course: Pt is a 55 y/o female who presented to the ER for what she describes as an anxiety attack . Patient states she was at her granddaughter's high school graduation when she suddenly felt nauseated and felt emesis coming upper throat. She immediately began feeling lightheaded, diaphoretic and weak and had to lay down. She then began to hyperventilate and had numbness and tingling sensation around her mouth as well as her hands and feet. She also had some chest pain that she describes as under the left breast and radiating up through her chest. The pain was burning in nature and severe in intensity initially so she decided to come into the ED for evaluation. Vitals in the ER were temperature 36.6? C, pulse 81, respiratory rate 19, blood pressure 132/70, pulse ox 100 on room air. Initial white blood cell count 13.5, hemoglobin 13, hematocrit 38.6, platelets 433. BMP within normal limits. Glucose 109 (patient is a diabetic on insulin). Calcium initially elevated 10.7 but on the next draw was normal. Troponins negative x3. D-dimer negative. Blood gas showed a normal pH with a slightly low PO2 of 77.3. CXR was negative. EKG revealed sinus rhythm with no worrisome ST changes. BNP was normal. Patient was admitted to the hospital service for observation. She continued to have occasional left-sided burning/chest pain with no diaphoresis, lightheadedness, cough or numbness/tingling. She stated the omeprazole helped. Her glucose dropped down to 48 likely due to home scheduled insulin being given while her appetitie was decreased. She was given glucose and was eating at discharge and glucose improved to 105. She was educated about hypoglycemia symptoms and to recheck it prior to insulin/bed. She had no further headache, numbness or tingling, or other symptoms that brought her into the emergency room. A CT of her abdomen pelvis was done prior to discharge due to persistent abdominal pain which was negative for acute pathology. She recently had a colonoscopy and is going to follow-up with that doctor for an EGD. Cardiac source seemed unlikely due to the negative test results, her pain being improved with omeprazole, and no signs or symptoms of heart failure. Of note, she did have an echo in March 2020 without significant abnormalities. She said that she has had a treadmill stress test within the last year but she does not remember the results. Of mention, the patient has a history of suicidal ideations which included a plan at 1 point. I spoke with her exten
[2021-02-01 15:37] LABS: Add Urine Microscopic? YES; Appearance Urine Clear (Clear); Bacteria Urine Trace /hpf; Bilirubin Urine Negative (Negative); Blood Urine Negative (Negative); Color Urine Yellow (Yellow); Glucose Urine UA Negative (Negative); Ketones Urine Negative (Negative); Leukocyte Esterase Ur Negative LEU/UL (Negative); Nitrate Urine Negative (Negative); Protein Urine Negative (Negative); Specific Grav Ur 1.012 (1.001-1.035); Squamous Epithelial Cell Urine Many /hpf (Few); WBC Urine 0-3 /hpf
[2021-02-01 16:35] LABS: Glucose Point of Care 48 mg/dl (65-105)
[2021-02-01] MEDS: GLUCOSE ORAL GEL 15 GM OF GLUCSE IN 37.5 GM TUBE PO (16:47)
[2021-02-01 17:08] LABS: Glucose Point of Care 70 mg/dl (65-105)
[2021-02-01 17:36] LABS: Glucose Point of Care 82 mg/dl (65-105)
[2021-02-01 18:04] LABS: Glucose Point of Care 105 mg/dl (65-105)
--- NOTE | 2021-02-16 09:37 | PC.NURSE ---
PTH related protein is low at 12(14-27). JEFFREY Saavedra aware. Results faxed to PCP, Helena Servin.
== END 2021-02-01 18:50 | disposition home or self-care (01) ==
LOC: ANHED 18:44 → ANHIMU 19:48
PROVIDERS: Emergency Medicine; Admitting Provider Internal Medicine; Emergency Provider Emergency Medicine; PCP Family Medicine; Visit Provider Physician Assistant
DX: R07.89 Other chest pain (principal); E83.52 Hypercalcemia; I10 Essential (primary) hypertension; R06.02 Shortness of breath; E11.42 Type 2 diabetes mellitus with diabetic polyneuropathy; K75.81 Nonalcoholic steatohepatitis (NASH); E04.2 Nontoxic multinodular goiter; F41.8 Other specified anxiety disorders; G47.33 Obstructive sleep apnea (adult) (pediatric); K21.9 Gastro-esophageal reflux disease without esophagitis; F33.0 Major depressive disorder, recurrent, mild; F17.210 Nicotine dependence, cigarettes, uncomplicated; Z79.4 Long term (current) use of insulin; Z79.84 Long term (current) use of oral hypoglycemic drugs; E78.5 Hyperlipidemia, unspecified; E66.01 Morbid (severe) obesity due to excess calories; Z68.41 Body mass index [BMI] 40.0-44.9, adult; Z86.39 Personal history of other endocrine, nutritional and metabolic disease
CPT/HCPCS: 36415; 71046; 74176; 80048; 80053; 81001; 82306; 82948; 83519; 83690; 83880; 83970; 84484; 85025; 85380; 85610; 85730; 86140; 93005; 96361; 96374; 99285; A9270; C9113; G0378; G0379; J1815; J2060; J7030